=== PATIENT | female | born 1995 | race Caucasian/White ===

== ENCOUNTER 2019-12-16 14:25 | Emergency (ER) | payer SELFPAY ==
[~2019-12-16] VITALS: Ht 160 cm; Wt 54.4 kg
--- NOTE | 2019-12-16 15:00 | NUR ---
patient came in to the ER c/o cough, congestion, body ache on room air, breathing evenly and unlabored. kept comfortable, will continue to monitor accordingly.
[2019-12-16] MEDS ORDERED: IBUPROFEN 600 MG TABLET PO ONE ×2 (15:05→15:30)
[2019-12-16] MEDS ORDERED: ACETAMINOPHEN ES 500 MG TABLET ONE (15:05)
[2019-12-16 15:17] VITALS: BP 121/73
--- NOTE | 2019-12-16 15:17 | NUR ---
Patient discharged to home in stable condition. Written and verbal after care instructions given. Patient verbalizes understanding of instruction.
[2019-12-16] MEDS ORDERED: ACETAMINOPHEN ES 500 MG TABLET PO ONE (15:30)
== END 2019-12-16 15:17 | disposition home or self-care (01) ==
LOC: ER 14:35
DX: J11.1 Influenza due to unidentified influenza virus with other respiratory manifestations (principal)